=== PATIENT | male | born 1975 | race African-American/Black ===

== ENCOUNTER → 2020-12-24 | Outpatient (CLI) | payer OTHER, SELFPAY ==
[2020-12-24 12:43] LABS: BASOPHIL % 0.4 % (0.0-0.2); EOSINOPHIL # 0.1 10^3/uL (0.0-0.2); EOSINOPHIL % 1.6 % (0.0-5.0); LYMPHOCYTES # 3.39 10^3/uL1 (1.0-4.8); LYMPHOCYTES % 48.3 % (24.0-44.0); MEAN CORP HGB 25.7 pg (26-34); MONOCYTES # 0.4 10^3/uL (0.3-0.8); MONOCYTES % 5.6 % (5.0-12.0); NEUTROPHIL # 3.1 10^3/uL (1.8-7.7); NEUTROPHILS % 44.1 % (41.0-85.0); PLATELET COUNT 224 10^3/uL (150-400); RED CELL DISTRIBUTION WIDTH 18.6 % (11.5-14.5)
[2020-12-24 13:02] LABS: CALCIUM 8.8 mg/dL (8.4-10.5); CARBON DIOXIDE 29.2 mmol/L (20.0-32)
--- NOTE | 2020-12-24 14:26 | DIREP ---
PROCEDURE:ABDOMINAL ULTRASOUND COMPARISON:None. INDICATIONS:R10.11 RUQ PAIN, N/V X2YRS WORSENING PAST 2D TECHNIQUE:High resolution sonographic examination was performed of the abdomen. FINDINGS: PANCREAS:Visualized portions of the pancreas appear normal. The pancreatic tail is obscured by bowel gas shadowing. LIVER:Normal hepatic parenchymal architecture. No focal hepatic lesion is identified. Hepatopetal flow in the portal vein. GALLBLADDER:The gallbladder appears distended measuring 11.6 cm in length. There is sludge and gallstones present in the dependent portion of the gallbladder. No evidence for gallbladder wall thickening or pericholecystic fluid. Positive sonographic Haile's sign. BILIARY:There is no biliary ductal dilatation. RIGHT KIDNEY:Normal. No hydronephrosis. LEFT KIDNEY:Normal. No hydronephrosis. SPLEEN:Appears enlarged and heterogeneous. AORTA:The visualized portions appear unremarkable. IVC:Intrahepatic portions unremarkable. OTHER:Negative. No ascites is identified. AORTA (prox):1.2 x 2.0 cm AORTA (mid):1.3 x 2.2 cm AORTA (dist):1.3 x 1.4 cm CBD:0.4 cm GALLBLADDER WALL:0.3 cm RIGHT KIDNEY:10.8 x 5.5 x 5.8 cm LEFT KIDNEY:12.1 x 4.9 x 5.1 cm SPLEEN:13.0 x 11.0 x 10.5 cm CONCLUSION:1. Cholelithiasis without gallbladder wall thickening or pericholecystic fluid. However, the tech reports a positive sonographic Haile's sign and as such acute cholecystitis is not excluded. 2. Splenomegaly. Dictated by: [facility] Physician on 12/24/2020 at 02:04 PM bs
== END | disposition home or self-care (01) ==
LOC: RAD 09:54
PROVIDERS: ATTEND Nurse Practitioner Adult Health
DX: K80.80 Other cholelithiasis without obstruction (principal); R16.1 Splenomegaly, not elsewhere classified; K82.8 Other specified diseases of gallbladder
CPT/HCPCS: 36415; 76700; 80053; 82150; 83690; 85025; 86677